=== PATIENT | female | born 1980 | race Caucasian/White ===

== ENCOUNTER → 2016-07-19 | Outpatient (CLI) | payer OTHER ==
--- NOTE | 2016-07-20 10:02 | USB ---
Reason for exam: clinical finding. History: Benign US biopsy breast VAD RT of the right breast, July 13, 2015. Indicated problem(s): palpable abnormality in the right breast. Physical Findings: Nurse Summary: patient states slow increase in a palpable size over past year. Irregular, mobile, palpable 5cm, hard areas was biopsied 07/13/15 (nurse mikayla). US Breast RT Right breast ultrasound including all four quadrants, the retroareolar region and axilla demonstrates 6.5 x 3.1 x 6.0cm irregular, solid, heavy shadowing at 9-12 o'clock and a 0.6cm oval, lymph node at the axilla tail. This measured 1.9cm at the time of biopsy on 07/13/15. These results were verbally communicated with the patient and result sheet given to the patient on 07/19/16. ASSESSMENT: Incomplete: need additional imaging evaluation, BI-RAD 0 RECOMMENDATION: Special view mammogram of both breasts.
--- NOTE | 2016-07-20 10:07 | MM ---
Reason for exam: additional evaluation requested from abnormal screening. History: Benign US biopsy breast VAD RT of the right breast, July 13, 2015. [facility] Diagnostic Mammo w CAD CHARLES Bilateral CC and MLO view(s) were taken. LM view(s) were taken of the left breast. The breast tissue is heterogeneously dense. This may lower the sensitivity of mammography. Large mass not well seen in the right breast due to the patients dense tissues. This limits adequate right breast compression. Microclip on the right breast from prior biopsy. These results were verbally communicated with the patient and result sheet given to the patient on 07/19/16. ASSESSMENT: Suspicious, BI-RAD 4 RECOMMENDATION: Surgical consultation of the right breast. (to determine surgical excision versus repeat biopsy) Called Dr. Thakur with mammographic findings and has scheduled an appointment for the patient for 07/20/16 at 3:[address] Anderson. PRELIMINARY REPORT CALLED AND FAXED TO DR. ANDERSON ON 07/20/16 AT 300/TMP.
== END | disposition home or self-care (01) ==
LOC: RADUSWWP 14:01
PROVIDERS: ATTEND Obstetrics & Gynecology
DX: N63 Unspecified lump in breast (principal); R92.8 Other abnormal and inconclusive findings on diagnostic imaging of breast
CPT/HCPCS: 76641; G0204

== ENCOUNTER 2016-08-16 07:03 | Day surgery (SDC) | payer OTHER ==
[2016-08-14 12:46] VITALS: BMI 18.8
[~2016-08-16 07:03] MED LIST: LACTATED RINGERS 1,000 ML IV SCH
[2016-08-16 07:25] VITALS: RESP 16; TEMP 98.2
[2016-08-16] MEDS ORDERED: LACTATED RINGERS 1,000 ML IV ONE (07:25)
[2016-08-16 07:35] LABS: Glucose,Whole Blood 374 mg/dL (75-99)
[2016-08-16] MEDS ORDERED: LIDOCAINE 1% INJ 10MG/ML (20 ML MDV) ONE (07:59)
[2016-08-16] MEDS ORDERED: GLYCOPYRROLATE 0.2 MG/ML 2 ML VIAL ONE (07:59)
[2016-08-16] MEDS ORDERED: PROPOFOL 10 MG/ML 20 ML VIAL IV ONE (07:59)
--- NOTE | 2016-08-16 08:05 | P.GSHP ---
History of Present Illness H&P Date: 08/16/16 Chief Complaint: GERD This is a 36-year-old female who presents today for EGD. She's had issues with GERD and gastritis. - Constitutional Constitutional: Reports as per HPI Past Medical History Past Medical History: Asthma, Diabetes Mellitus, Pneumonia Additional Past Medical History / Comment(s): MULTIPLE SCLEROSIS History of Any Multi-Drug Resistant Organisms: MRSA Date of last positivie culture/infection: 03/12/2015 MDRO Source:: smooth ankle, toe Past Surgical History: Appendectomy, Cholecystectomy, Orthopedic Surgery Additional Past Surgical History / Comment(s): sinus surgery. cataract bilteral. VITRECTOMY smooth EYE. TILT TABLE TEST.; RIGHT KNEE ARTHROSCOPY, COLONOSCOPY Past Anesthesia/Blood Transfusion Reactions: No Reported Reaction Past Psychological History: Depression Smoking Status: Never smoker Past Alcohol Use History: Rare Past Drug Use History: Marijuana Additional Drug Use History / Comment(s): MEDICAL CARD - Past Family History Father Family Medical History: No Reported History Mother Family Medical History: Asthma Medications and Allergies Home Medications Medication Instructions Recorded Confirmed Type PARoxetine HCL 40 mg PO HS 04/21/14 08/16/16 History traZODone HCL 150 mg PO HS 04/21/14 08/16/16 History Multivitamins, Thera [Multivitamin 1 tab PO DAILY 10/22/14 08/16/16 History (formulary)] Glatiramer Acetate [Copaxone] 20 mg SQ DAILY 03/12/15 08/16/16 History Albuterol Inhaler [Ventolin Hfa 1 - 2 puff INHALATION Q6HR PRN 08/14/16 History Inhaler] Insulin Aspart (For Pump) [NovoLOG 0.01 unit SQ-PUMP CONTINUOUS 08/14/16 History (For Pump)] OXcarbazepine [Trileptal] 600 mg PO BID 08/14/16 08/16/16 History levETIRAcetam [Keppra] 750 mg PO Q12HR 08/14/16 08/16/16 History Allergies Allergy/AdvReac Type Severity Reaction Status Date / Time hydromorphone HCl Allergy Anaphylaxis Verified 08/16/16 07:12 [From Dilaudid] Penicillins Allergy Anaphylaxis Verified 08/16/16 07:12 Surgical - Exam Vital Signs Temp Pulse Resp BP Pulse Ox 98.2 F 84 16 135/79 98 08/16/16 07:20 08/16/16 07:20 08/16/16 07:20 08/16/16 07:20 08/16/16 07:20 - General well developed, no distress - Eyes PERRL - ENT normal pinna - Neck no masses - Respiratory normal expansion - Cardiovascular Rhythm: regular - Abdomen Abdomen: soft, non tender Results - Labs Abnormal Lab Results - Last 24 Hours (Table) 08/16/16 Range/Units 07:33 POC Glucose (mg/dL) 374 H (75-99) mg/dL Assessment and Plan Plan: GERD. We'll perform EGD.
--- NOTE | 2016-08-16 08:19 | P.OP ---
Date of Procedure: 08/16/16 Preoperative Diagnosis: GERD Postoperative Diagnosis: Gastroparesis with retained food in stomach Mild antral gastritis Mild esophagitis Procedure(s) Performed: EGD Anesthesia: MAC Surgeon: Troy Anderson Pathology: other (Antrum, esophagus) Condition: stable Disposition: PACU Description of Procedure: The patient's placed on the endoscopy table in the lateral position. She received IV sedation. The gastroscope placed oropharynx and passed into the esophagus. Scope was then placed and stomach and there was a large amount of retained food in the stomach. The scope was then placed through the pylorus. The first and second portion of duodenum appeared normal. Scope was then brought back the antrum the antrum was mildly inflamed. This was biopsied. The scope was then retroflexed and the large amount of the stomach. This was photographed. The GE junction was at 40 cm. The distal esophagus appeared mildly inflamed. A biopsies performed. The proximal esophagus appeared normal. Scope was withdrawn for patient
[2016-08-16 08:32] LABS: Glucose,Whole Blood 242 mg/dL (75-99)
[2016-08-16 09:05] VITALS: BP 134/87; PULSE 84
== END 2016-08-16 09:21 | disposition home or self-care (01) ==
LOC: ORWHC2ENDO 07:03
PROVIDERS: ATTEND Surgery
DX: K20.9 Esophagitis, unspecified (principal); K29.50 Unspecified chronic gastritis without bleeding; K31.84 Gastroparesis; J45.909 Unspecified asthma, uncomplicated; E11.9 Type 2 diabetes mellitus without complications; Z79.4 Long term (current) use of insulin; Z96.41 Presence of insulin pump (external) (internal); G35 Multiple sclerosis; Z79.899 Other long term (current) drug therapy; Z88.5 Allergy status to narcotic agent; Z88.0 Allergy status to penicillin
CPT/HCPCS: 88305; 88342; 43239; J2001; J2704

== ENCOUNTER → 2016-08-18 | Day surgery (SDC) | payer OTHER ==
[~2016-08-18] MED LIST changes: +ALPRAZolam 0.25 MG TAB ONE; +BACITRACIN OINT 1 EACH PACKET TOPICAL ONE; -LACTATED RINGERS 1,000 ML IV SCH; +LIDOCAINE 1% INJ 10MG/ML (20 ML MDV) ONE; +SODIUM BICARB 4% 5 ML VIAL (0.48 MEQ/ML) ONE
--- NOTE | 2016-08-18 13:49 | USB ---
EXAMINATION TYPE: US biopsy breast VAD RT DATE OF EXAM: 08/18/2016 11:47 AM CLINICAL HISTORY: R92.8 ABN Mammogram. TECHNIQUE: Ultrasound guided core biopsy of right breast. COMPARISON: NONE FINDINGS: The procedure of ultrasound guided core biopsy was explained to the patient. Benefits, alternatives, and risks were discussed. An informed consent was then obtained. The patient was placed in supine positioning for imaging and for the procedure. The overlying skin was prepped and draped in usual sterile fashion. Lidocaine buffered with bicarbonate was used as anesthetic into the skin and subcutaneous tissue up to area of concern in the right breast. A ameena was made with surgical scalpel. Under ultrasound guidance, a 12-gauge vacuum assisted biopsy gun device was used to obtain 4 core samples. Following this, a biopsy clip was left in lesion. The patient tolerated the procedure well without any immediate complication. The patient was kept in the radiology department for short stay after the procedure and then discharged home in stable condition. IMPRESSION: Successful, uncomplicated ultrasound guided core biopsy of area of concern in the right breast, full pathology results to follow. Referring physician notified at the area of concern within the right breast was extremely firm which may limit diagnostic yield. Needle had difficulty with penetration in the lesion. Follow-up surgical biopsy or MRI is suggested. Pathology Results: High Risk BREAST, RIGHT, ULTRASOUND GUIDED CORE BIOPSY: DENSE STROMAL FIBROSIS. Recommendation Surgical consult of the right breast. BLAYNE
== END | disposition home or self-care (01) ==
LOC: RADUSWWP 10:29
PROVIDERS: ATTEND Surgery
DX: N60.31 Fibrosclerosis of right breast (principal)
CPT/HCPCS: 19083; 88305; A4648; J2001

== ENCOUNTER → 2016-09-25 | Outpatient (CLI) | payer OTHER ==
[2016-09-25 13:23] LABS: Basophils % (A) 1 %; CH 30.8; CHCM 33.2; Eosinophils # (A) 0.2 k/uL (0-0.7); Eosinophils % (A) 3 %; HCT 37.2 % (34.0-46.0); HDW 2.79; Luc # (Auto) 0.16; Luc % (Auto) 2; Lymphocytes # (A) 1.9 k/uL (1.0-4.8); Lymphocytes % (A) 26 %; MCHC 32.2 g/dL (31.0-37.0); MCV 93.2 fL (80.0-100.0); Mean Platelet Volume 6.9; Monocytes # (A) 0.3 k/uL (0-1.0); Monocytes % (A) 5 %; Neutrophils # (A) 4.6 k/uL (1.3-7.7); Neutrophils % (A) 64 %; RBC 3.99 m/uL (3.80-5.40); RDW 13.7 % (11.5-15.5); WBC 7.2 k/uL (3.8-10.6); WBC (Perox) 6.99
[2016-09-25 13:27] LABS: ALT 36 U/L (9-52); AST 24 U/L (14-36); Alkaline Phosphatase 97 U/L (38-126); Anion Gap 8 mmol/L; Blood Urea Nitrogen 20 mg/dL (7-17); Calcium 9.9 mg/dL (8.4-10.2); Carbon Dioxide 29 mmol/L (22-30); Chloride 102 mmol/L (98-107); Glucose 292 mg/dL (74-99); Iron 65 ug/dL (37-170); Non-African American GFR(MDRD) >60 (>60 ml/min/1.73 sqM); Sodium 139 mmol/L (137-145); Total Bilirubin 0.2 mg/dL (0.2-1.3); Total Protein 6.7 g/dL (6.3-8.2)
[2016-09-25 13:36] LABS: % Iron Saturation 24.3 % (20-50); Total Iron Binding Capacity 268 ug/dL (265-497)
[2016-09-25 14:25] LABS: Vitamin B12 >1000 pg/mL (239-931)
== END | disposition home or self-care (01) ==
LOC: LABWHC1 12:46
PROVIDERS: ATTEND Nurse Practitioner Acute Care
DX: G35 Multiple sclerosis (principal); E55.9 Vitamin D deficiency, unspecified
CPT/HCPCS: 36415; 80053; 82306; 82607; 82728; 83540; 83550; 84439; 84443; 84466; 84481; 85025

== ENCOUNTER → 2016-09-28 | Outpatient (CLI) | payer OTHER ==
--- NOTE | 2016-10-06 09:14 | BMR ---
EXAMINATION TYPE: MR breast BILAT wo/w con DATE OF EXAM: 09/28/2016 10:41 PM HISTORY: Right breast mass per order. Mass increasing in size per patient in right breast. Benign bio psy last year in this year per patient. Right breast biopsy showing dense stromal fibrosis with chron ic inflammation and focal fat necrosis in June 2015. CONTRAST: Multiplanar, multisequence images of the breasts were acquired utilizing 10 mL intravenous MultiHance gadolinium contrast. TECHNIQUE: A series of fat and water weighted images in the long and short axis views of both breasts are obtained in conjunction with dynamic contrast MRI with subtraction technique. Three-dimensional and additional postprocessing imaging is created on independent workstation and reviewed during offi cial interpretation of this study. Post-processed subtraction and MIP reconstructions were then gene rated. Dynamic images were spatially registered using the [employer] software package, and dynamic curves and parametric images were evaluated. Postprocessing is performed at both internal and outside institution. REFERENCE: Ultrasound right breast June 17, 2015 BI-RADS 4. Ultrasound right breast July 19, 2016 BI-RADS 0. Bilateral breast mammogram July 19, 2016 BI-RADS 4. FINDINGS: Exam is dictated in consultation with outside breast MRI radiologist including utilization of, outside software as well as internal postprocessing software. I Agree with below findings and rec ommendations Extremely dense fibroglandular tissue is present bilaterally with mild background enhancement. Coronal STIR sequence demonstrates normal axillary lymph nodes. Left are slightly more prominent than right. Axial T2 sequence demonstrates no cysts or focal fluid collections. Mild to moderate diffuse edema in the left breast is noted of uncertain etiology. No suspicious skin thickening is seen. Non fat saturated T1 sequence demonstrates no fat containing lesions. Susceptibility artifact is seen in two areas in the 10:00 position of the right breast, image number 284 series 707 for reference, at le ast one correlates to the mammographic marker clip seen on the 07/19/16 mammogram. Delayed post contrast sequence demonstrates no internal mammary lymphadenopathy. Regarding the right breast: There are no masses, architectural distortion or suspicious areas of enhancement. Regarding the left breast: There are no masses, architectural distortion or suspicious areas of enhancement. Impression: There is no MR correlate to the area of stromal fibrosis seen at the 10:00 position of the right jorge [address]. No evidence of invasive malignancy in either breast. No lymphadenopathy. Recommendations: Any decision to biopsy the palpable finding in the right breast should be based on clinical findings. Next mammographic evaluation can start age 40 unless the patient is high risk. BI-RADS category 1 right breast. BI-RADS category 1 left breast.
== END | disposition home or self-care (01) ==
LOC: RADMRIMAIN 20:44
PROVIDERS: ATTEND Surgery
DX: N63 Unspecified lump in breast (principal)
CPT/HCPCS: 0159T; C8908; A9577; 77059

== ENCOUNTER → 2016-10-07 | Outpatient (CLI) | payer OTHER ==
[2016-10-07 11:44] LABS: Blood Urea Nitrogen 19 mg/dL (7-17); Non-African American GFR(MDRD) >60 (>60 ml/min/1.73 sqM)
== END | disposition home or self-care (01) ==
LOC: RADMRIMAIN 10:54
PROVIDERS: ATTEND Nurse Practitioner Acute Care
DX: G35 Multiple sclerosis (principal); M54.5 Low back pain
CPT/HCPCS: 36415; 82565; 84520

== ENCOUNTER → 2016-10-07 | Outpatient (CLI) | payer OTHER ==
--- NOTE | 2016-10-08 15:22 | MR ---
EXAMINATION TYPE: MR brain wo/w con DATE OF EXAM: 10/07/2016 12:34 PM COMPARISON: 09/04/2014 HISTORY: 36-year-old female with history of MS for 2 years. TECHNIQUE: Multiplanar, multisequence images of the brain and brainstem is performed without and with utilizing 15 mL intravenous MultiHance gadolinium contrast. Demyelinating disease protocol with additional Sag ittal Flair sequence performed. FINDINGS: T2 Lesions Present : Yes Approximate Number of Lesions: Approximately 35 on the right and 40-45 on the left. Locations Identified : Juxtacortical, deep white matter, periventricular, pericallosal. Size of Reference Lesion(s): 1. 8 mm juxtacortical left frontal white matter axial image 20, new. 2. 1 cm in the left centrum semiovale, axial image 21, also new. Enhancing Lesion(s) Present: No. T1 Hypointense Lesion(s) Present: Some lesions are T1 hypointense while others are not. Change from Prior: While a few tiny lesions seen previously seem to have resolved, there as been over all interval increase in the number and size of lesions as compared to 2014 were approximately 30 wer e counted. Diffusion weighted images demonstrate no evidence of a recent infarct or other diffusion abnormality. There is no worrisome extra-axial fluid collection. The ventricular system and cisternal spaces ar e normal in size and appearance. The brain volume is age appropriate. Midline structures demonstrate normal morphology. Stable 3.5 mm cerebellar tonsillar herniation as se en previously. Otherwise, the craniocervical junction appears within normal limits. Post contrast images demonstrate no abnormal enhancement. The dural venous sinuses appear patent. Mild mucosal thickening maxillary sinuses and right ethmoid air cells. IMPRESSION: 1. Features of MS with increasing size and number of lesions within both cerebral hemispheres. Modera te overall burden now. No enhancing plaques seen. A few tiny lesion seen previously have resolved. 2. Mild chronic paranasal sinus disease. 3. Incidental benign cerebellar tonsillar ectopia again noted.
--- NOTE | 2016-10-08 15:25 | MR ---
EXAMINATION TYPE: MR lumbar spine wo con DATE OF EXAM: 10/07/2016 12:33 PM COMPARISON: NONE HISTORY: 36-year-old female with history of MS x2 years TECHNIQUE: Multiplanar, multisequence images of the lumbar spine were acquired. FINDINGS: Vertebral body heights are preserved and alignment is maintained. No focal disc herniation. Preserved intervertebral disc hydration. Conus medullaris is normal. No suspicious bone marrow replacement. No prevertebral or paravertebral soft tissue abnormality seen. No spinal canal or neuroforaminal stenosis. IMPRESSION: No focal disc herniation, significant spinal canal stenosis, neuroforaminal narrowing, or significant degenerative change seen.
== END ==
LOC: RADMRIMAIN 11:21
PROVIDERS: ATTEND Nurse Practitioner Acute Care
DX: M54.5 Low back pain (principal); G35 Multiple sclerosis; G93.9 Disorder of brain, unspecified
CPT/HCPCS: 70553; 72148; A9577

== ENCOUNTER 2016-11-24 07:08 | Day surgery (SDC) | payer OTHER ==
[2016-11-17 13:00] VITALS: BMI 18.8
[~2016-11-24 07:08] MED LIST changes: -ALPRAZolam 0.25 MG TAB ONE; -BACITRACIN OINT 1 EACH PACKET TOPICAL ONE; +DEXAMETHASONE SOD PHOSPHATE 10 MG/ML 1 ML VIAL IV ONE; +HEPARIN SODIUM,PORCINE 5,000 UNIT/ML 1 ML VIAL SQ ONE; +LACTATED RINGERS 1,000 ML IV SCH; +LIDOCAINE 1% 20 ML VIAL (10MG/ML) FOR IV START INTRADERMA PRN; -LIDOCAINE 1% INJ 10MG/ML (20 ML MDV) ONE; +MIDAZOLAM 2 MG/2 ML VIAL IV PRN; +ONDANSETRON 4 MG/2 ML VIAL IVP ONE; +Pre Op ABX Message 1 EACH MISC MISCELLANE ONE; +SCOPOLAMINE 1.5MG/72HR PATCH TRANSDERM ONE; -SODIUM BICARB 4% 5 ML VIAL (0.48 MEQ/ML) ONE
[2016-11-24 07:31] VITALS: RESP 16
[2016-11-24 07:51] LABS: Glucose,Whole Blood 97 mg/dL (75-99)
--- NOTE | 2016-11-24 08:04 | P.GSHP ---
History of Present Illness H&P Date: 11/24/16 Chief Complaint: Right breast mass This a 36-year-old female who has developed a right breast mass. The patient's mass is benign. Due to the large size mass a open biopsies been performed. The mass measures approximately 8 cm in diameter. Past Medical History Past Medical History: Cancer, Diabetes Mellitus, Pneumonia Additional Past Medical History / Comment(s): HYPOTENSION. ABNORMAL BLOOD COUNTS /LOW IRON. DIAGNOSED MS MAY 2013. gastrointestinal ca (03/03)- radiation and chemo. History of Any Multi-Drug Resistant Organisms: MRSA Date of last positivie culture/infection: 03/12/2015 MDRO Source:: smooth ankle, toe Past Surgical History: Appendectomy, Breast Surgery, Cholecystectomy, Orthopedic Surgery Additional Past Surgical History / Comment(s): sinus surgery. cataract bilteral. VITRECTOMY smooth EYE. TILT TABLE TEST.; RIGHT KNEE ARTHROSCOPY, RT BREAST BX, EGD Past Anesthesia/Blood Transfusion Reactions: No Reported Reaction Smoking Status: Never smoker - Past Family History Father Family Medical History: No Reported History Mother Family Medical History: Asthma Medications and Allergies Home Medications Medication Instructions Recorded Confirmed Type traZODone HCL 150 mg PO HS 04/21/14 11/24/16 History Multivitamins, Thera [Multivitamin 1 tab PO DAILY 10/22/14 11/24/16 History (formulary)] Glatiramer Acetate [Copaxone] 20 mg SQ DAILY 03/12/15 11/24/16 History Albuterol Inhaler [Ventolin Hfa 1 - 2 puff INHALATION Q6HR PRN 08/14/16 History Inhaler] Insulin Aspart (For Pump) [NovoLOG 0.01 unit SQ-PUMP CONTINUOUS 08/14/16 History (For Pump)] OXcarbazepine [Trileptal] 600 mg PO BID 08/14/16 11/24/16 History levETIRAcetam [Keppra] 750 mg PO Q12HR 08/14/16 11/24/16 History Ascorbic Acid [Vitamin C] 500 mg PO DAILY 11/17/16 11/24/16 History Cholecalciferol [Vitamin D3] 1,000 unit PO DAILY 11/17/16 11/24/16 History Ferrous Sulfate [Iron (65 MG 325 mg PO DAILY 11/17/16 11/24/16 History Elemental)] PARoxetine HCL [PARoxetine HCL] 40 mg PO DAILY 11/17/16 11/24/16 History Pnv,Calcium 72/Iron/Folic Acid 1 each PO DAILY 11/17/16 11/24/16 History [ Plus Tablet] Allergies Allergy/AdvReac Type Severity Reaction Status Date / Time hydromorphone HCl Allergy Anaphylaxis Verified 11/24/16 07:16 [From Dilaudid] Penicillins Allergy Anaphylaxis Verified 11/24/16 07:16 Surgical - Exam Vital Signs Temp Pulse Resp BP Pulse Ox 97.9 F 84 16 104/68 100 11/24/16 07:27 11/24/16 07:27 11/24/16 07:27 11/24/16 07:27 11/24/16 07:27 - General well developed, no distress - Eyes PERRL - ENT normal pinna - Neck no masses - Respiratory normal expansion - Cardiovascular Rhythm: regular - Abdomen Abdomen: soft, non tender A plate centimeter mass in the right breast in the upper-outer quadrant. Assessment and Plan Plan: Breast mass. We'll perform open biopsy.
[2016-11-24] MEDS ORDERED: PROPOFOL 10 MG/ML 20 ML VIAL IV ONE (08:09)
[2016-11-24] MEDS ORDERED: MIDAZOLAM 2 MG/2 ML VIAL ONE (08:09)
[2016-11-24] MEDS ORDERED: LIDOCAINE 1% INJ 10MG/ML (20 ML MDV) ONE (08:09)
[2016-11-24] MEDS ORDERED: fentaNYL (PF) 50 MCG/ML 2 ML AMP ONE (08:09)
[2016-11-24] MEDS ORDERED: BUPIVACAIN-EPI 0.5%-1:200,000 30 ML VIAL SQ ONE (08:27)
[2016-11-24] MEDS ORDERED: SODIUM CHLORIDE 0.9% 50 ML with ceFAZolin 1,000 MG IV ONE ×2 (08:39)
--- NOTE | 2016-11-24 09:01 | P.OP ---
Date of Procedure: 11/24/16 Preoperative Diagnosis: Right breast mass Postoperative Diagnosis: DeferTO pathology Procedure(s) Performed: Right breast biopsy Implants: Anesthesia: MIKAYLA Surgeon: Troy Anderson Estimated Blood Loss (ml): 5 Pathology: other (Right breast mass) Condition: stable Disposition: PACU Indications for Procedure: Operative Findings: Description of Procedure: The patient's placed on the operative table in the supine position. She received LMA intubation. After general anesthesia. The patient's right breast was prepped and draped usual fashion. Patient had a breast mass located in the upper outer quadrant breast. Masses quite large measuring 10 x 15 cm. A circumareolar incision was made in the upper outer quadrant and then using a large cautery and Harmonic scissors a piece the mass was excised. This breast biopsy measured pressure hernia 4 x 5 cm is. The mass was quite firm. The bellies hemostasis. Skin was closed interrupted 3-0 Monocryl suture. Dermabond was applied. Patient was sent to recovery in stable condition.
[2016-11-24 09:10] LABS: Glucose,Whole Blood 102 mg/dL (75-99)
[2016-11-24 09:11] VITALS: TEMP 97.4
[2016-11-24 10:49] VITALS: BP 121/77; PULSE 81
== END 2016-11-24 11:30 | disposition home or self-care (01) ==
LOC: OR 07:08
PROVIDERS: ATTEND Surgery
DX: N64.89 Other specified disorders of breast (principal); N60.31 Fibrosclerosis of right breast; E11.9 Type 2 diabetes mellitus without complications; Z79.4 Long term (current) use of insulin; J45.909 Unspecified asthma, uncomplicated; G35 Multiple sclerosis; D50.9 Iron deficiency anemia, unspecified; F32.9 Major depressive disorder, single episode, unspecified; Z79.899 Other long term (current) drug therapy; Z88.5 Allergy status to narcotic agent; Z88.0 Allergy status to penicillin
CPT/HCPCS: 19120; 81025; 88305; J2250; J1644; J1100; J2405; J2001; J3010; J0690; J2704